=== PATIENT | female | born 1935 | race Caucasian/White ===

== ENCOUNTER → 2017-04-11 | Outpatient (CLI) | payer MEDICARE, BC ==
[~2017-04-11] MED LIST: AGGRENOX PO; ALBUTEROL17 GM INH; ALLEGRA-D1 TAB.SR1 PO; AMARYL PO; ANTIVERT PO; ASPIRIN81 M2 PO; AVAPRO PO; CALCIUM 600-D T1 TAB PO; CELEBREX PO; COREG12.5 MG PO; DIAZEPAM PO; DUONEB 2.5-0.5 M3 ML NEB; FARXIGA5 MG PO; FOSAMAX70 MG PO; GLUCOPHAGE XR500 MG PO; GLUCOPHAGE500 MG PO; HI-CAL500 M1 PO; HYDROCHLOROTHIA25 MG PO; IMDUR PO; INSULIN; JENTADUETO 2.51 EACH PO; KCL PO; LASIX PO; LASIX20 MG PO; LEVEMIR FL100 UNIT/1 SQ; LEVEMIR100 U/ML SQ; LEVOTHROID88 MCG PO; LEVOTHYROXINE88 MCG PO; LISINOPRIL10 MG PO; LOPRESSOR PO; LORTAB 7.5-3251 EACH PO; LORTAB 7.5-5001 TAB PO; LOVAZA1 G PO; METFORMIN PO; NEURONTIN300 MG PO; NEXIUM PO; NIACIN ER500 MG PO; NIASPAN PO; NITROLINGUAL12 G1; POTASSIUM CHLO10 MEQ PO; PRILOSEC40 MG PO; QUININE SULFAT324 MG PO; ROBAXIN 750750 M1 PO; STOOL SOFTENER1 EAC1 PO; STOOL SOFTENER240 MG PO; SYNTHROID PO; VICODIN 5/500 T1 TAB PO; VITAMIN D1000 UNIT PO; VITAMIN D35000 UNI1 PO; VYTORIN 10/40 T1 TAB PO; ZOCOR PO
== END | disposition home or self-care (01) ==
LOC: CSSDAY 09:53
DX: M81.0 Age-related osteoporosis without current pathological fracture (principal); Z79.899 Other long term (current) drug therapy
CPT/HCPCS: 96372; J0897